=== PATIENT | female | born 1995 ===

== ENCOUNTER 2017-03-12 09:02 | Emergency (ER) | payer OTHER, SELFPAY ==
[2017-03-12 09:12] VITALS: PULSE 86; RESP 20; TEMP 98.3; O2SAT 98
--- NOTE | 2017-03-12 10:05 | ED PDOC ---
HPI: Back Time Seen by Provider: 03/12/17 09:55 Chief Complaint (Nursing): Back Pain Chief Complaint (Provider): Back pain History Per: Patient Additional Complaint(s): 21 yo female, no PMH, presents to Ed with complaints of chronic back pain since yesterday. denies any fall or injury. Pt has not taken anything for pain. No UTI like complaints either. Past Medical History Reviewed: Nursing Documentation, Vital Signs Vital Signs: Last Vital Signs Temp 98.3 F 03/12/17 09:10 Pulse 86 03/12/17 09:10 Resp 20 03/12/17 09:10 BP Pulse Ox 98 03/12/17 09:10 - Medical History PMH: No Chronic Diseases - Surgical History Surgical History: No Surg Hx - Family History Family History: States: No Known Family Hx - Living Arrangements Living Arrangements: With Family - Social History Current smoker - smoking cessation education provided: No Alcohol: Social - Home Medications Home Medications: Ambulatory Orders Medication Instructions Recorded Ca/Cholecalciferol/Fe/Folic 1 1 tab PO 05/07/14 [Basic's Vitamins] Ibuprofen [Motrin] 600 mg PO Q6 #20 tab 03/12/17 Sulfamethoxazole/Trimethoprim 1 tab PO BID 5 Days 03/12/17 [Bactrim DS 800 mg-160 mg] - Allergies Allergies/Adverse Reactions: Allergies Allergy/AdvReac Type Severity Reaction Status Date / Time No Known Allergies Allergy Verified 05/07/14 04:12 Review of Systems ROS Statement: Except As Marked, All Systems Reviewed And Found Negative Musculoskeletal: Positive for: Back Pain Physical Exam - Reviewed Nursing Documentation Reviewed: Yes Vital Signs Reviewed: Yes - Physical Exam Appears: Positive for: Well, Non-toxic, No Acute Distress Head Exam: Positive for: ATRAUMATIC, NORMAL INSPECTION, NORMOCEPHALIC Skin: Positive for: Normal Color, Warm, DRY Eye Exam: Positive for: EOMI, Normal appearance, PERRL ENT: Positive for: Normal ENT Inspection Neck: Positive for: Normal, Painless ROM Cardiovascular/Chest: Positive for: Regular Rate, Rhythm Respiratory: Positive for: CNT, Normal Breath Sounds Gastrointestinal/Abdominal: Positive for: Normal Exam, Bowel Sounds, Soft Back: Positive for: Normal Inspection. Negative for: L CVA Tenderness, R CVA Tenderness Extremity: Positive for: Normal ROM Neurologic/Psych: Positive for: Alert, Oriented - ECG O2 Sat by Pulse Oximetry: 98 Medical Decision Making Medical Decision Making: Pt medicated with Toradol and flexeril PO UA resulted with 38 WBC, medicated with Bactroban while in ED Disposition - Clinical Impression Clinical Impression: UTI (urinary tract infection), Back pain - Patient ED Disposition Is Patient to be Admitted: No - Disposition Disposition: Routine/Home Disposition Time: 13:44 Condition: FAIR Prescriptions: Ibuprofen [Motrin] 600 mg PO Q6 #20 tab Sulfamethoxazole/Trimethoprim [Bactrim DS 800 mg-160 mg] 1 tab PO BID 5 Days Instructions: Urinary Tract Infection in Women (ED), Acute Low Back Pain (ED) Forms: [employer] ([place])
[2017-03-12 12:25] LABS: RENAL EPITHELIAL 1 /hpf (0-3); SQUAMOUS EPITHIAL 42 /hpf (0-5); URINE BACTERIA RARE (<OCC); URINE BILIRUBIN NEGATIVE (NEGATIVE); URINE BLOOD NEGATIVE (NEGATIVE); URINE CLARITY TURBID (Clear); URINE COLOR AMBER (YELLOW); URINE GLUCOSE (UA) NEG (Normal); URINE LEUKOCYTE ESTERASE LARGE Leu/uL (Negative); URINE NITRATE NEGATIVE (NEGATIVE); URINE PROTEIN 100 mg/dL (NEGATIVE); URINE UROBILINOGEN 0.2-1.0 mg/dL (0.2-1.0)
[2017-03-12] MEDS ORDERED: Tmp-Smz 800 mg-160 mg DS Tab PO STA (13:08)
[2017-03-12] MEDS ORDERED: Tmp-Smz 800 mg-160 mg DS Tab ONE (13:49)
== END 2017-03-12 13:53 | disposition home or self-care (01) ==
LOC: H.ER 09:02
DX: N39.0 Urinary tract infection, site not specified (principal)

== ENCOUNTER 2017-05-29 01:13 | Emergency (ER) | payer SELFPAY ==
[2017-05-29 01:41] VITALS: BP 112/70; PULSE 77; RESP 16; TEMP 98; O2SAT 100; BMI 23.9
--- NOTE | 2017-05-29 01:54 | ED PDOC ---
HPI: Back Time Seen by Provider: 05/29/17 01:35 Chief Complaint (Nursing): Back Pain Chief Complaint (Provider): back pain History Per: Patient History/Exam Limitations: no limitations Onset/Duration Of Symptoms: Hrs (1) Current Symptoms Are (Timing): Still Present Quality Of Discomfort: "Pain" Exacerbating Factor(s): Turning, Movement Additional History Per: Patient Additional Complaint(s): 22 y/o female ambulates to ED with low back pain x 1 hour. Patient states she was walking down the stairs when her lower back went in to a "spasm", whic she states has happened before, causing her to fall down 5 steps. Patient notes low back pain worse with movement. DEnies head injury, neck pain, numbness/ weakness of extremities, bowel/bladder incontinence, hematuria. Past Medical History Reviewed: Historical Data, Nursing Documentation, Vital Signs Vital Signs: Last Vital Signs Temp 98.0 F 05/29/17 01:32 Pulse 77 05/29/17 01:32 Resp 16 05/29/17 01:32 BP 112/70 05/29/17 01:32 Pulse Ox 100 05/29/17 01:32 - Medical History PMH: No Chronic Diseases - Surgical History Surgical History: No Surg Hx - Family History Family History: States: No Known Family Hx - Home Medications Home Medications: Ambulatory Orders Medication Instructions Recorded Ca/Cholecalciferol/Fe/Folic 1 1 tab PO 05/07/14 [Basic's Vitamins] Ibuprofen [Motrin] 600 mg PO Q6 #20 tab 03/12/17 Sulfamethoxazole/Trimethoprim 1 tab PO BID 5 Days tab 03/12/17 [Bactrim DS 800 mg-160 mg] Cyclobenzaprine [Cyclobenzaprine 10 mg PO BID PRN #14 tab 05/29/17 HCl] Naproxen [Naprosyn] 500 mg PO Q12 PRN #20 tablet 05/29/17 - Allergies Allergies/Adverse Reactions: Allergies Allergy/AdvReac Type Severity Reaction Status Date / Time No Known Allergies Allergy Verified 05/29/17 01:32 Review of Systems ROS Statement: Except As Marked, All Systems Reviewed And Found Negative Musculoskeletal: Positive for: Back Pain Physical Exam - Reviewed Nursing Documentation Reviewed: Yes Vital Signs Reviewed: Yes - Physical Exam Appears: Positive for: Well, Non-toxic, No Acute Distress Head Exam: Positive for: ATRAUMATIC, NORMAL INSPECTION, NORMOCEPHALIC Cardiovascular/Chest: Positive for: Regular Rate, Rhythm Respiratory: Positive for: Normal Breath Sounds Back: Positive for: Vertebral Tenderness (lower lspine; no bony deformity, ecchymosis noted), Muscle Spasm (left lspine paraspinal tenderness). Negative for: L CVA Tenderness, R CVA Tenderness, Decreased ROM Extremity: Positive for: Normal ROM Neurologic/Psych: Positive for: Alert, Oriented - ECG O2 Sat by Pulse Oximetry: 100 - Other Rad lspine xray X-Ray: Viewed By Me X-Ray Interpretation: straigtening, no acute fracture - Progress ED Course And Treament: Toradol IM, flexeril PO, xray Patient educated on findings, discharged with rx naproxen, flexeril. Advised warm compresses/ice Follow up PMD 2-3 days. Return to ED for worsening/concerning symptoms. Disposition - Clinical Impression Clinical Impression: Back pain - Patient ED Disposition Is Patient to be Admitted: No Counseled Patient/Family Regarding: Studies Performed, Diagnosis, Need For Followup - Disposition Referrals: [facility] [Outside] Disposition: Routine/Home Disposition Time: 02:50 Condition: IMPROVED Prescriptions: Cyclobenzaprine [Cyclobenzaprine HCl] 10 mg PO BID PRN #14 tab PRN Reason: Muscle Spasm Naproxen [Naprosyn] 500 mg PO Q12 PRN #20 tablet PRN Reason: Pain, Moderate (4-7) Instructions: Acute Low Back Pain (ED)
--- NOTE | 2017-05-29 14:46 | RAD ---
PROCEDURE: Radiographs of the Lumbar Spine. HISTORY: fall, low back pain COMPARISON: No prior. FINDINGS: BONES: Vertebral bodies maintained in height. Transverse processes and posterior elements intact. Normal alignment maintained. Minimal levoscoliosis. DISC SPACES: Unremarkable. OTHER FINDINGS: None. IMPRESSION: Minimal levoscoliosis. No evidence fracture or degenerative disc disease
== END 2017-05-29 02:55 | disposition home or self-care (01) ==
LOC: H.ER 01:13
DX: M54.5 Low back pain (principal); W10.9XXA Fall (on) (from) unspecified stairs and steps, initial encounter; Y92.89 Other specified places as the place of occurrence of the external cause
CPT/HCPCS: 72100; 81025; 96372; 99282; J1885